=== PATIENT | female | born 1940 | race Caucasian/White ===

== ENCOUNTER 2016-07-02 13:02 | Day surgery (SDC) | payer MEDICARE ==
[2016-07-02] MEDS ORDERED: IV START KIT ONE (13:23)
[2016-07-02] MEDS ORDERED: LACTATED RINGERS 1,000 ML ONE (13:23)
[2016-07-02] MEDS ORDERED: PROPOFOL 40 ML IV ONE (14:46)
[2016-07-02] MEDS ORDERED: LACTATED RINGERS 1,000 ML IV SCH (15:30)
[2016-07-02 19:40] LABS: HELICOBACTER PYLORII DETECTION NEGATIVE (NEGATIVE)
--- NOTE | 2016-07-04 09:31 | SURGPATH ---
[facility] [address] [place] [id number] Patient Name: CHRISTINA DUMONT MR#: [id number] : 1940 Gender: F Specimen #: [id number] Collected: 07/02/2016 Received: 07/03/2016 Reported: 07/04/2016 Submitting Phys: STANTON MACEDO Copy To Phys: MICHEL VAZQUEZ [facility] [place] Clinical History / Pre-Operative Diagnosis: ESOPHAGEAL STRICTURE Specimen Source / Surgical Procedure Performed: ANTRUM BIOPSY Interpretation: ANTRUM, BIOPSY: - NO PATHOLOGIC ABNORMALITY Electronically Signed Out Brown Elliott M.D. Gross Description: The specimen is received in a formalin filled container labeled with the patient's name and "antrum biopsy". Two valero biopsies are 0.2 and 0.3 cm. Totally embedded in one cassette. Darek Croft PKade Microscopic Description: Microscopic performed. 1: [id number] K22.8
== END 2016-07-02 16:01 | disposition home or self-care (01) ==
LOC: SDC 13:02
PROVIDERS: ATTEND Surgery
PROC: 0D748ZZ Dilation of Esophagogastric Junction, Via Natural or Artificial Opening Endoscopic (ICD-10-PCS; principal; 2016-07-02)
PROC: 0DB68ZX Excision of Stomach, Via Natural or Artificial Opening Endoscopic, Diagnostic (ICD-10-PCS; 2016-07-02)
DX: K22.2 Esophageal obstruction (principal); K29.70 Gastritis, unspecified, without bleeding; K44.9 Diaphragmatic hernia without obstruction or gangrene; K57.30 Diverticulosis of large intestine without perforation or abscess without bleeding; I65.29 Occlusion and stenosis of unspecified carotid artery; J44.9 Chronic obstructive pulmonary disease, unspecified; E78.5 Hyperlipidemia, unspecified; D35.00 Benign neoplasm of unspecified adrenal gland; I10 Essential (primary) hypertension; I50.9 Heart failure, unspecified; M19.90 Unspecified osteoarthritis, unspecified site; Z87.891 Personal history of nicotine dependence
CPT/HCPCS: 87081; 43249; 43239; J7120